=== PATIENT | female | born 1985 | race Caucasian/White ===

== ENCOUNTER → 2017-05-06 | Outpatient (CLI) | payer OTHER ==
[2017-05-06 19:04] LABS: HEMOGLOBIN 13.1 g/dl (12.0-16.0); MEAN CORPUSCULAR HEMOGLOBIN 29.6 pg (27.0-33.0); MEAN CORPUSCULAR HGB CONC 32.8 g/dl (32.0-36.5); MEAN CORPUSCULAR VOLUME 90.3 fl (80.0-96.0); PLATELET COUNT, AUTOMATED 368 10^3/uL (150-450); RED BLOOD COUNT 4.43 10^6/uL (4.00-5.40); RED CELL DISTRIBUTION WIDTH 13.1 % (11.5-14.5); WHITE BLOOD COUNT 11.2 10^3/uL (4.0-10.0)
[2017-05-06 19:18] LABS: LUTEINIZING HORMONE 5.1 mIU/mL; TESTOSTERONE 40 NG/DL (14-76)
[2017-05-06 19:41] LABS: ALBUMIN 4.1 GM/DL (3.2-5.2); ALBUMIN/GLOBULIN RATIO 1.03 (1.00-1.93); ALKALINE PHOSPHATASE 63 U/L (45-117); ALT/SGPT 28 U/L (12-78); ANION GAP 8 MEQ/L (8-16); AST/SGOT 14 U/L (7-37); BILIRUBIN,TOTAL 0.2 MG/DL (0.2-1.0); BLOOD UREA NITROGEN 13 MG/DL (7-18); CALCIUM LEVEL 9.7 MG/DL (8.5-10.1); CARBON DIOXIDE LEVEL 28 MEQ/L (21-32); CHLORIDE LEVEL 104 MEQ/L (98-107); CREATININE FOR GFR 0.85 MG/DL (0.55-1.02); FREE T4 0.97 NG/DL (0.76-1.46); GLOMERULAR FILTRATION RATE > 60.0 (>60); GLUCOSE, FASTING 75 MG/DL (70-100); POTASSIUM SERUM 4.2 MEQ/L (3.5-5.1); SODIUM LEVEL 140 MEQ/L (136-145); TOTAL PROTEIN 8.1 GM/DL (6.4-8.2)
== END ==
LOC: M SMT 13:15
DX: N92.6 Irregular menstruation, unspecified (principal)
CPT/HCPCS: 83001

== ENCOUNTER → 2017-06-08 | Outpatient (REF) | payer OTHER ==
[2017-06-08 16:06] LABS: CHLAMYDIA DNA AMPLIFICATION NEGATIVE (NEGATIVE); GC DNA AMPLIFICATION NEGATIVE (NEGATIVE)
== END ==
LOC: M LAB REF 13:28
DX: Z11.3 Encounter for screening for infections with a predominantly sexual mode of transmission (principal)

== ENCOUNTER → 2017-11-06 | Outpatient (CLI) | payer OTHER ==
[2017-11-10 00:08] LABS: HERPES ZOSTER, VARICELLA IgG <135 index (Immune >165)
== END ==
LOC: M SMT 08:58
DX: Z01.84 Encounter for antibody response examination (principal)
CPT/HCPCS: 86787

== ENCOUNTER 2018-06-19 11:22 | Emergency (ER) | payer OTHER ==
[~2018-06-19] VITALS: Ht 162.6 cm; Wt 91.4 kg
[2018-06-19] MEDS ORDERED: BUPR150T3 (11:33)
[2018-06-19] MEDS ORDERED: BENA25CA4 PO (11:33)
[2018-06-19] MEDS ORDERED: METH125VL IM (11:33)
[2018-06-19] MEDS ORDERED: diphenhydrAMINE INJ 50MG/ML VIAL (J1200) IV STA (11:44)
[2018-06-19] MEDS ORDERED: dexameTHASONE 4 MG/ML 1ML VIAL (J1100) IV ONE (11:45)
[2018-06-19] MEDS ORDERED: FAMOTIDINE IV BAG 20 MG in APPROPRIATE DILUENT 1 EA IV ONE (11:45)
[2018-06-19 12:38] VITALS: BP 121/72
[2018-06-20] MEDS ORDERED: PRED20TA (13:33)
[2018-06-20] MEDS ORDERED: PRED20TA PO (15:20)
[2018-06-20] MEDS ORDERED: PEPC1TAB5 PO (15:21)
== END 2018-06-19 12:39 | disposition home or self-care (01) ==
LOC: M ED 11:22
DX: R21 Rash and other nonspecific skin eruption (principal); T78.40XA Allergy, unspecified, initial encounter; Z91.018 Allergy to other foods; Z79.899 Other long term (current) drug therapy
CPT/HCPCS: 96365; 96375; 99284; G0463; J1100; J1200; J2930

== ENCOUNTER 2018-06-20 06:34 | Emergency (ER) | payer OTHER ==
[~2018-06-20] VITALS: Ht 162.6 cm; Wt 91.4 kg
[~2018-06-20 06:34] MED LIST: BENA25CA4 PO; BUPR150T3; METH125VL IM
[2018-06-20 06:35] VITALS: BP 132/59
[2018-06-20] MEDS ORDERED: PRED20TA (13:33)
[2018-06-20] MEDS ORDERED: PRED20TA PO (15:20)
[2018-06-20] MEDS ORDERED: PEPC1TAB5 PO (15:21)
== END 2018-06-20 09:17 | disposition left against medical advice (07) ==
LOC: M ED 06:34
DX: Z53.21 Procedure and treatment not carried out due to patient leaving prior to being seen by health care provider (principal)

== ENCOUNTER 2018-06-20 13:17 | Emergency (ER) | payer OTHER ==
[~2018-06-20] VITALS: Ht 162.6 cm; Wt 91.4 kg
[2018-06-20] MEDS ORDERED: PRED20TA (13:33)
[2018-06-20] MEDS ORDERED: diphenhydrAMINE INJ 50MG/ML VIAL (J1200) IV ONE (14:15)
[2018-06-20] MEDS ORDERED: methylPREDNISolone INJ 125 MG/2 ML VIAL (J2930) IV ONE (14:15)
[2018-06-20] MEDS ORDERED: NS 1,000 ML IV ONE (14:15)
[2018-06-20] MEDS ORDERED: FAMOTIDINE IV BAG 20 MG in APPROPRIATE DILUENT 1 EA IV ONE (14:15)
[2018-06-20] MEDS ORDERED: PRED20TA PO (15:20)
[2018-06-20] MEDS ORDERED: PEPC1TAB5 PO (15:21)
[2018-06-20 15:36] VITALS: BP 103/58
== END 2018-06-20 15:56 | disposition home or self-care (01) ==
LOC: M ED 13:17
DX: L50.0 Allergic urticaria (principal); Z91.018 Allergy to other foods; Z79.899 Other long term (current) drug therapy; Z79.52 Long term (current) use of systemic steroids
CPT/HCPCS: 96365; 96366; 96375; 99284; J1200; J2930

== ENCOUNTER → 2018-06-22 | Outpatient (CLI) | payer OTHER ==
[~2018-06-22] MED LIST changes: +PEPC1TAB5 PO; +PRED20TA; +PRED20TA PO
[2018-06-27 14:09] LABS: F002-IgE Milk < 0.10 kU/L (Class 0); F004-IgE Wheat < 0.10 kU/L (Class 0); F013-IgE Peanut < 0.10 kU/L (Class 0); F014-IgE Soybean < 0.10 kU/L (Class 0); F026-IgE Pork < 0.10 kU/L (Class 0); F027-IgE Beef < 0.10 kU/L (Class 0); F245-IgE Egg, Whole < 0.10 kU/L (Class 0); FX02-IgE Food Mix (Sea Foods) Negative (.)
== END ==
LOC: M WUC 16:06
PROVIDERS: ATTEND Physician Assistant
DX: L23.9 Allergic contact dermatitis, unspecified cause (principal)

== ENCOUNTER 2019-03-31 10:37 | Day surgery (SDC) | payer OTHER ==
[~2019-03-31] VITALS: Ht 160 cm; Wt 87.5 kg
[~2019-03-31 10:37] MED LIST changes: +NS 1,000 ML IV ONE; +PHEN-239 PO
[2019-03-31] MEDS ORDERED: PROPOFOL 200 MG/20 ML VIAL As Ordered ONE ×2 (12:36→12:46)
--- NOTE | 2019-03-31 13:07 | ROOR ---
Patient Name: Sabine Patel Procedure Date: 03/31/2019 12:37 PM Date of : 1985 Age: 33 Room: [facility] Gender: Female Note Status: Finalized Procedure: Colonoscopy Indications: Change in bowel habits Providers: Scott Barrera Jr, MD Referring MD: Farrah BRYANT DO Requesting Provider: Medicines: Propofol per Anesthesia Complications: No immediate complications. Procedure: Pre-Anesthesia Assessment: - Prior to the procedure, a History and Physical was performed, and patient medications and allergies were reviewed. The patient is competent. The risks and benefits of the procedure and the sedation options and risks were discussed with the patient. All questions were answered and informed consent was obtained. Patient identification and proposed procedure were verified by the physician and the nurse in the pre-procedure area and in the procedure room. Mental Status Examination: alert and oriented. Airway Examination: normal oropharyngeal airway and neck mobility. Respiratory Examination: clear to auscultation. CV Examination: normal. ASA Grade Assessment: II - A patient with mild systemic disease. After reviewing the risks and benefits, the patient was deemed in satisfactory condition to undergo the procedure. The anesthesia plan was to use moderate sedation / analgesia (conscious sedation). Immediately prior to administration of medications, the patient was re-assessed for adequacy to receive sedatives. The heart rate, respiratory rate, oxygen saturations, blood pressure, adequacy of pulmonary ventilation, and response to care were monitored throughout the procedure. The physical status of the patient was re-assessed after the procedure. The Colonoscope was introduced through the anus and advanced to the cecum, identified by appendiceal orifice and ileocecal valve. The colonoscopy was performed without difficulty. The patient tolerated the procedure well. The quality of the bowel preparation was adequate. Findings: The rectum, sigmoid colon, descending colon, cecum, appendiceal orifice, ileocecal valve and ileum appeared normal. Biopsies for histology were taken with a cold forceps from the ascending colon, right colon, right transverse colon and sigmoid colon for evaluation of microscopic colitis. Five hyperplastic polyps were found in the recto-sigmoid colon, transverse colon and ascending colon. The polyps were small in size. These polyps were removed with a hot snare. Resection and retrieval were complete. Impression: - The rectum, sigmoid colon, descending colon, cecum, appendiceal orifice, ileocecal valve and terminal ileum are normal. Biopsied. - Five small polyps at the recto-sigmoid colon, in the transverse colon and in the ascending colon, removed with a hot snare. Resected and retrieved. Recommendation: - Discharge patient to home (ambulatory). - Repeat colonoscopy in 5 years for screening purposes. Scott Barrera MD Scott Barrera Jr, MD 03/31/2019 1:07:11 PM Electronically signed by Scott Barrera Jr, MD Number of Addenda: 0 Note Initiated On: 03/31/2019 12:37 PM Estimated Blood Loss: Estimated blood loss: none.
[2019-03-31 13:37] VITALS: BP 108/57
== END 2019-03-31 13:39 | disposition home or self-care (01) ==
LOC: M OPP 10:37
PROVIDERS: ATTEND Surgery
DX: K63.5 Polyp of colon (principal); R19.4 Change in bowel habit; Z86.010 Personal history of colon polyps; Z80.0 Family history of malignant neoplasm of digestive organs; Z79.899 Other long term (current) drug therapy; Z91.018 Allergy to other foods

== ENCOUNTER → 2019-05-02 | Outpatient (REF) | payer OTHER ==
[~2019-05-02] MED LIST changes: -NS 1,000 ML IV ONE
[2019-05-02 20:46] LABS: FREE T4 0.96 NG/DL (0.76-1.46); THYROID STIMULATING HORMONE 1.67 uIU/ML (0.358-3.740)
[2019-05-02 20:50] LABS: ESTRADIOL 32.2 PG/ML; FOLLICLE STIMULATING HORMONE 3.6 mIU/mL; LUTEINIZING HORMONE 2.9 mIU/mL; PROGESTERONE 0.63 NG/ML
[2019-05-05 00:07] LABS: SEX HORMONE BINDING GLOBULIN 29.2 nmol/L (24.6-122.0); TESTOSTERONE FREE (DIRECT) 3.2 pg/mL (0.0-4.2)
== END ==
LOC: M LAB REF 16:23
PROVIDERS: ATTEND Physician Assistant
DX: R53.83 Other fatigue (principal)

== ENCOUNTER → 2019-09-18 | Outpatient (CLI) | payer OTHER ==
[~2019-09-18] MED LIST changes: +IBUP80TA PO; +PERCOCET PO
== END ==
LOC: M LABSMTC 08:56
PROVIDERS: ATTEND Anesthesiology
DX: Z03.818 Encounter for observation for suspected exposure to other biological agents ruled out (principal); Z11.59 Encounter for screening for other viral diseases
CPT/HCPCS: C9803; U0003

== ENCOUNTER 2019-09-21 07:34 | Day surgery (SDC) | payer OTHER ==
[2019-09-21] VITALS (7 sets, daily range): BP systolic 94–113; BP diastolic 48–67
[~2019-09-21] VITALS: Ht 162.6 cm; Wt 79.4 kg
[~2019-09-21 07:34] MED LIST changes: -IBUP80TA PO; +LIDOCAINE 1% MDV 20ML VIAL SQ PRN; +LR 1,000 ML IV ONE; -PERCOCET PO
[2019-09-21] MEDS ORDERED: MIDAZOLAM INJ 2MG/2ML VIAL (J2250 PER 1MG) As Ordered ONE (08:08)
[2019-09-21] MEDS ORDERED: fentaNYL 250 MCG/5 ML INJECTION (J3010) As Ordered ONE (08:08)
[2019-09-21] MEDS ORDERED: ROCURONIUM BROMIDE 50 MG/5 ML VIAL As Ordered ONE ×2 (08:09→10:32)
[2019-09-21] MEDS ORDERED: dexameTHASONE 4 MG/ML 1ML VIAL (J1100 PER 1MG) As Ordered ONE (08:09)
[2019-09-21] MEDS ORDERED: ePHEDrine SULFATE 25 MG/5 ML(5MG/ML) SYRINGE As Ordered ONE (08:09)
[2019-09-21] MEDS ORDERED: KETOROLAC 60MG 2ML VIAL As Ordered ONE (08:09)
[2019-09-21] MEDS ORDERED: SUGAMMADEX SODIUM 500 MG/5 ML VIAL (BRIDION) As Ordered ONE (08:09)
[2019-09-21] MEDS ORDERED: LIDOCAINE 2% 100MG/5ML SDV (FOR ANES.) As Ordered ONE (08:09)
[2019-09-21] MEDS ORDERED: propofoL 200 MG/20 ML VIAL As Ordered ONE (08:09)
[2019-09-21] MEDS ORDERED: ONDANSETRON 4MG/2ML VIAL As Ordered ONE (08:09)
[2019-09-21] MEDS ORDERED: PHENYLephrine HCL 500 MCG/5 ML (100MCG/ML) SYRINGE (J2370) As Ordered ONE (08:09)
[2019-09-21 08:22] LABS: HEMATOCRIT 40.3 % (36.0-47.0); HEMOGLOBIN 13.2 g/dl (12.0-15.5); MEAN CORPUSCULAR HEMOGLOBIN 30.2 pg (27.0-33.0); MEAN CORPUSCULAR HGB CONC 32.8 g/dl (32.0-36.5); MEAN CORPUSCULAR VOLUME 92.2 fl (80.0-96.0); PLATELET COUNT, AUTOMATED 328 10^3/uL (150-450); RED BLOOD COUNT 4.37 10^6/uL (4.00-5.40); WHITE BLOOD COUNT 10.1 10^3/uL (4.0-10.0)
[2019-09-21 08:48] LABS: BLOOD UREA NITROGEN 8 MG/DL (7-18); CALCIUM LEVEL 8.5 MG/DL (8.5-10.1); CARBON DIOXIDE LEVEL 28 MEQ/L (21-32); CHLORIDE LEVEL 110 MEQ/L (98-107); CREATININE FOR GFR 0.78 MG/DL (0.55-1.30); GLOMERULAR FILTRATION RATE > 60.0 (>60); GLUCOSE, FASTING 85 MG/DL (70-100); POTASSIUM SERUM 4.4 MEQ/L (3.5-5.1); SODIUM LEVEL 143 MEQ/L (136-145)
[2019-09-21] MEDS ORDERED: FLUORESCEIN 10% (100MG/ML) 5 ML VIAL As Ordered ONE (09:31)
[2019-09-21] MEDS ORDERED: BUPIVACAINE/EPIN 0.25% 30 ML VIAL As Ordered ONE (09:31)
[2019-09-21] MEDS ORDERED: ceFAZolin 2 GM/D5W 50 ML IV BAG (J0690 PER 500MG) As Ordered ONE (09:54)
[2019-09-21] MEDS ORDERED: ACETAMINOPHEN 1000MG 100ML IV BTL (OFIRMEV) (J0131 PER 10MG) As Ordered ONE (10:32)
[2019-09-21] MEDS ORDERED: PERCOCET 5MG/325MG TAB As Ordered ONE (11:35)
[2019-09-21] MEDS ORDERED: fentaNYL 100 MCG/2 ML INJECTION (J3010) As Ordered ONE (11:35)
[2019-09-21] MEDS: fentaNYL 100 MCG/2 ML INJECTION (J3010) IV PRN ×4 (11:37→12:03)
[2019-09-21] MEDS: PERCOCET 5MG/325MG TAB PO PRN ×4 (11:40→21:03)
[2019-09-21] MEDS ORDERED: IBUP80TA PO (11:43)
[2019-09-21] MEDS ORDERED: PERCOCET PO (11:43)
[2019-09-21] MEDS ORDERED: LR 1,000 ML IV SCH (11:45)
[2019-09-21] MEDS ORDERED: METOCLOPRAMIDE INJ 10MG/2ML VIAL (J2765 PER 1) IV PRN (11:45)
[2019-09-21] MEDS ORDERED: ONDANSETRON 4MG/2ML VIAL IV PRN (11:45)
[2019-09-21] MEDS: IBUPROFEN 800 MG TAB PO SCH ×4 (12:12→23:49)
[2019-09-21] MEDS: SIMETHICONE 80 MG CHEW TAB PO SCH ×3 (13:40→23:48)
[2019-09-22] VITALS: BP 97/51
[2019-09-22] MEDS: PERCOCET 5MG/325MG TAB PO PRN ×3 (01:20→09:47)
[2019-09-22 05:30] VITALS: BP 102/63
[2019-09-22] MEDS: IBUPROFEN 800 MG TAB PO SCH (05:41)
[2019-09-22] MEDS: SIMETHICONE 80 MG CHEW TAB PO SCH (05:42)
[2019-09-22 08:00] VITALS: BP 110/60
--- NOTE | 2019-09-28 08:39 | RO ---
DATE OF PROCEDURE: 09/21/2019 Sabine is a 34-year-old female with excessive history of abnormal uterine bleeding, dyspareunia, and an incomplete uterovaginal prolapse. After counseling, a decision was made for robotic-assisted total hysterectomy, removal of both tubes, and cystoscopy. PREOPERATIVE DIAGNOSES: 1. Excessive menstruation. 2. Dyspareunia. 3. Incomplete uterovaginal prolapse. POSTOPERATIVE DIAGNOSES 1. Excessive menstruation. 2. Dyspareunia. 3. Incomplete uterovaginal prolapse. PROCEDURE: 1. Robotic-assisted total hysterectomy. 2. Removal of both tubes. 3. Cystoscopy. SURGEON: Dr. Dex Jay ANESTHESIA: General. COMPLICATIONS: None. ESTIMATED BLOOD LOSS: Less than 50 mL. FINDINGS: An enlarged uterus with evidence of bilateral tubal ligation. Normal appearing ovaries. On cystoscopy, bilateral ureteral jets were noted. No evidence of any bladder injury noted. DESCRIPTION OF PROCEDURE: After obtaining informed consent, patient was taken to the operating room where general anesthetic was found to be adequate. She was then draped and prepped in usual sterile fashion in the dorsal lithotomy position. At this point, straight catheterization of the bladder was performed for approximately 200 mL of urine. A Randolph catheter was left in the bladder for drainage during the surgery. Then a weighted speculum was placed. A uterine manipulator was inserted. Attention turned to the abdomen, where the abdomen was insufflated with CO2 gas to approximately 3.5 liters through a Veress needle at the umbilicus. Then an 8 mm supraumbilical incision was made for robotic camera trocar. We then placed two left 8 mm lateral ports for robotic arm. Two in the assist port on the right, one 8 mm lateral port was placed for robotic arm #1. Patient was placed in steep Trendelenburg to approximately 30-degree angle. We then brought the robot to the right side of the patient. The camera port was docked in usual fashion. Targeting was performed. After passing the targeting process, we then docked the remaining arm #1 and #2. I un-scrubbed and went to the surgeon console and began the surgery. The pelvis and abdomen were completely inspected. No gross abnormalities noted. At this point, the fallopian tube was identified. Using the Vessel Sealer, the fallopian tube was then coagulated and cut. This was brought down to the utero-ovarian ligament, which was also cauterized and cut. The round ligament was cauterized and cut in a similar fashion. This was taken down to the uterine artery down to the uterosacral ligament. The opposite side was done in a similar fashion. The anterior leaflet of the broad ligament was dissected to create a bladder flap. The posterior aspect was dissected off in a similar fashion. At this point, the Vessel Sealer was removed and Endo Darrion were placed. Anterior and posterior colpotomy was performed, and the uterus and bilateral fallopian tubes as well as the Filshie clips were removed through the vagina. They were left in place in the vagina to maintain pneumoperitoneum. At this point, the Endo Darrion were removed. A needle boom truck driver was inserted. A #2-0 V- Loc suture was also inserted, and the vaginal cuff was closed in running fashion using #2-0 V-Loc sutures. The peritoneum was closed over the vaginal cuff. Good hemostasis noted. 1 mL of Furacin given by the anesthesiologist to assist in a cystoscopy. I then re-scrubbed and went to the patient's side. Retrograde filled the bladder with 230 mL of normal saline. Cystoscopy performed. Bilateral ureteral jets noted. No evidence of any bladder injuries We then turned our attention to the abdomen, where all the trocar ports were removed and the sites were closed using #3-0 Vicryl in subcuticular fashion. 0.25% Marcaine was placed for postoperative pain. Dermabond placed. Patient tolerated procedure well. She was then transferred to recovery room in stable condition. LILIANA
== END 2019-09-22 09:55 | disposition home or self-care (01) ==
LOC: M SDC 07:34 → M PED 13:40 → M SDC 09-22 09:55
PROVIDERS: ATTEND Obstetrics & Gynecology
DX: N92.0 Excessive and frequent menstruation with regular cycle (principal); N94.10 Unspecified dyspareunia; N81.2 Incomplete uterovaginal prolapse; N72 Inflammatory disease of cervix uteri
CPT/HCPCS: 36415; 58571; 80048; 81025; 85027; 86850; 86900; 86901; 88307; J0131; J0690; J1100; J1885; J2250; J2370; J2405; J3010

== ENCOUNTER → 2019-11-14 | Outpatient (REF) | payer OTHER ==
[~2019-11-14] MED LIST changes: +IBUP80TA PO; -LIDOCAINE 1% MDV 20ML VIAL SQ PRN; -LR 1,000 ML IV ONE; +PERCOCET PO
== END ==
LOC: M LAB REF 08:15
PROVIDERS: ATTEND Family Medicine
DX: N76.0 Acute vaginitis (principal)

== ENCOUNTER → 2020-01-04 | Outpatient (CLI) | payer OTHER ==
--- NOTE | 2020-01-12 08:56 | REP ---
LEFT SHOULDER SERIES CLINICAL: Left shoulder pain. TECHNIQUE: Internal rotation, external rotation, and Y view of the left shoulder. FINDINGS: Osseous structures, joint spaces, and surrounding soft tissues are normal. Acromioclavicular and glenohumeral joints are intact and without arthritic degenerative changes or evidence for injury. Subacromial space is normal. No calcified loose bodies or periarticular calcifications are appreciated. Surrounding soft tissues are normal. Calcified granuloma in the left mid lung zone noted. IMPRESSION: Essentially normal left shoulder radiograph series. MTDD
--- NOTE | 2020-01-12 08:57 | REP ---
CHEST X-RAY CLINICAL: Chest pain. TECHNIQUE: PA and lateral. COMPARISON: None. FINDINGS: There is a 1 cm dense nodule in the left mid lung zone, likely calcified granuloma. Remainder of the lung acosta are clear. Mediastinum and cardiac silhouette are normal. Skeletal structures are intact. IMPRESSION: Presumed calcified granuloma in the left lung and possible hilar calcified lymph nodes suggesting prior granulomatous disease. No prior examination is available for comparison. If clinically warranted, consider noncontrast chest CT for further investigation. MTDD
== END ==
LOC: M RAD 11:54
PROVIDERS: ATTEND Physician Assistant
DX: R91.8 Other nonspecific abnormal finding of lung field (principal); R07.89 Other chest pain; M25.512 Pain in left shoulder

== ENCOUNTER → 2020-01-31 | Outpatient (CLI) | payer OTHER ==
--- NOTE | 2020-01-31 13:43 | REP ---
INDICATION: ABN FIDNING ON LUNG XRAY COMPARISON: None TECHNIQUE: Axial noncontrast images from the thoracic inlet to the upper abdomen with coronal and sagittal reformations. This CT examination was performed using the following dose reduction techniques: Automated exposure control, adjustment of mA and/or kv according to the patient's size, and use of iterative reconstruction technique. FINDINGS: 14 mm calcified nodule in the periphery of the left lower lobe along with 5 mm calcified nodule in the perihilar left upper lobe and multiple calcified enlarged left hilar lymph nodes compatible with Gohn complex and prior granulomatous disease. The lung acosta are otherwise well aerated, relatively symmetric and clear. No consolidation, suspicious nodule or mass. No effusion. No pneumothorax. Tracheobronchial tree is patent. Mediastinum demonstrates normal thoracic aorta, pulmonary vasculature, and heart/pericardium. Musculoskeletal structures are intact. Limited upper abdomen demonstrates normal bilateral adrenal glands and evidence for prior cholecystectomy. IMPRESSION: 1. Changes related to prior granulomatous disease. 2. No acute mediastinal or pleuroparenchymal process appreciated. <Electronically signed by Roshan Gabriel > 01/31/20 [id number]
== END ==
LOC: M RAD 13:11
PROVIDERS: ATTEND Physician Assistant
DX: R91.8 Other nonspecific abnormal finding of lung field (principal)

== ENCOUNTER → 2020-04-21 | Outpatient (CLI) | payer OTHER ==
[~2020-04-21] MED LIST changes: -BUPR150T3; +BUPR150T4
[2020-04-21 10:08] LABS: BLOOD UREA NITROGEN 13 MG/DL (7-18); CALCIUM LEVEL 8.6 MG/DL (8.5-10.1); CARBON DIOXIDE LEVEL 27 MEQ/L (21-32); CHLORIDE LEVEL 110 MEQ/L (98-107); CREATININE FOR GFR 0.82 MG/DL (0.55-1.30); GLOMERULAR FILTRATION RATE > 60.0 (>60); GLUCOSE, FASTING 97 MG/DL (70-100); POTASSIUM SERUM 4.4 MEQ/L (3.5-5.1); SODIUM LEVEL 141 MEQ/L (136-145)
[2020-04-21 10:31] LABS: HEMOGLOBIN A1c 5.1 %
[2020-04-23 13:04] LABS: CORTISOL AM 6.4 UG/DL (4.3-22.4)
== END ==
LOC: M LAB 08:52
PROVIDERS: ATTEND Physician Assistant
DX: E66.9 Obesity, unspecified (principal)

== ENCOUNTER → 2020-04-24 | Outpatient (CLI) | payer OTHER ==
--- NOTE | 2020-04-24 17:51 | REPVR ---
PROCEDURE INFORMATION: Exam: CT Cervical Spine Without Contrast Exam date and time: 04/24/2020 5:31 PM Age: 34 years old Clinical indication: Injury or trauma; Fall; Blunt trauma; Additional info: Unspecified injury of head, initial encounter TECHNIQUE: Imaging protocol: Computed tomography images of the cervical spine without contrast. Radiation optimization: All CT scans at this facility use at least one of these dose optimization techniques: automated exposure control; mA and/or kV adjustment per patient size (includes targeted exams where dose is matched to clinical indication); or iterative reconstruction. COMPARISON: No relevant prior studies available. FINDINGS: Bones/joints: There is no fracture. There is straightening of cervical curvature. Alignment is otherwise normal. Vertebral bodies maintain their height. There is no fracture of the posterior elements. Discs/Spinal canal/Neural foramina: There is minimal spondylosis. Minimal disc bulge at C6-C7. There is no central or foraminal stenosis in the cervical spine. Lungs: Lung apices are normal. Soft tissues: Unremarkable. IMPRESSION: No fracture of the cervical spine. Electronically signed by: Brody Bonds On 04/24/2020 17:52:14 PM
--- NOTE | 2020-04-24 17:54 | REPVR ---
PROCEDURE INFORMATION: Exam: CT Head Without Contrast Exam date and time: 04/24/2020 5:31 PM Age: 34 years old Clinical indication: Injury or trauma; Fall; Blunt trauma (contusions or hematomas); Additional info: Unspecified injury of head, initial encounter TECHNIQUE: Imaging protocol: Computed tomography of the head without contrast. Radiation optimization: All CT scans at this facility use at least one of these dose optimization techniques: automated exposure control; mA and/or kV adjustment per patient size (includes targeted exams where dose is matched to clinical indication); or iterative reconstruction. COMPARISON: No relevant prior studies available. FINDINGS: Brain: There is no evidence of infarct, villa-white matter differentiation is preserved. There is no hemorrhage or extra-axial collection. There is no mass. Cerebral ventricles: There is no hydrocephalus. Bones/joints: Unremarkable. No acute fracture. Paranasal sinuses: Visualized sinuses are unremarkable. No fluid levels. Mastoid air cells: Visualized mastoid air cells are well aerated. Soft tissues: Unremarkable. IMPRESSION: No intracranial injury or lesion. Electronically signed by: Brody Bonds On 04/24/2020 17:55:22 PM
== END ==
LOC: M RAD 17:17
PROVIDERS: ATTEND Physician Assistant
DX: S09.90XA Unspecified injury of head, initial encounter (principal); X58.XXXA Exposure to other specified factors, initial encounter; Y92.89 Other specified places as the place of occurrence of the external cause; Y93.9 Activity, unspecified; Y99.9 Unspecified external cause status

== ENCOUNTER → 2020-08-24 | Outpatient (REF) | payer OTHER ==
[~2020-08-24] MED LIST changes: +BUPR150T12; -BUPR150T4
== END ==
LOC: M LAB REF 15:33
PROVIDERS: ATTEND Physician Assistant
DX: J20.9 Acute bronchitis, unspecified (principal)

== ENCOUNTER 2021-01-21 15:16 | Emergency (ER) | payer OTHER ==
[~2021-01-21] VITALS: Ht 162.6 cm; Wt 91.2 kg
[2021-01-21 15:20] VITALS: BP 122/71
== END 2021-01-21 21:25 | disposition left against medical advice (07) ==
LOC: M ED 15:16
DX: Z53.21 Procedure and treatment not carried out due to patient leaving prior to being seen by health care provider (principal)

== ENCOUNTER → 2021-02-12 | Outpatient (CLI) | payer OTHER ==
[2021-02-12 12:21] LABS: BASO # 0.1 10^3/uL (0.0-0.2); BASO % 0.5 % (0.0-1.0); EOS # 0.3 10^3/uL (0.0-0.5); EOS % 2.8 % (0.0-3.0); HEMATOCRIT 38.8 % (36.0-47.0); HEMOGLOBIN 12.8 g/dl (12.0-15.5); LYMPH # 3.7 10^3/uL (1.5-5.0); LYMPH % 33.9 % (24.0-44.0); MEAN CORPUSCULAR VOLUME 91.1 fl (80.0-96.0); MONO # 0.7 10^3/uL (0.0-0.8); MONO % 6.1 % (2.0-8.0); NEUTROPHILS # 6.2 10^3/uL (1.5-8.5); NEUTROPHILS % 56.3 % (36.0-66.0); PLATELET COUNT, AUTOMATED 364 10^3/uL (150-450); RED BLOOD COUNT 4.26 10^6/uL (4.00-5.40)
[2021-02-12 12:48] LABS: ERYTHROCYTE SEDIMENTATION RATE 27 mm/hr (0-20)
[2021-02-12 12:49] LABS: C REACTIVE PROTEIN QUANTITATIV 0.91 MG/DL (0.00-0.30); RHEUMATOID FACTOR QUANT < 10.0 IU/ML (<15.0); URIC ACID 5.4 MG/DL (2.6-6.0)
[2021-02-13 15:09] LABS: ANTINUCLEAR ANTIBODIES DIRECT Negative (Negative); Lyme Disease IgG/IgM Antibodie <0.91 ISR (0.00-0.90); Lyme Disease IgM Ab Quantitati <0.80 index (0.00-0.79)
== END ==
LOC: M LAB 11:17
PROVIDERS: ATTEND Physician Assistant Surgical
DX: M25.562 Pain in left knee (principal)

== ENCOUNTER → 2021-03-29 | Outpatient (CLI) | payer OTHER | LOC: M LABNEURO 09:34 | PROVIDERS: ATTEND Physician Assistant Surgical | DX: S83.92XD Sprain of unspecified site of left knee, subsequent encounter (principal); X58.XXXD Exposure to other specified factors, subsequent encounter; Y92.9 Unspecified place or not applicable; Y93.9 Activity, unspecified; Y99.9 Unspecified external cause status ==